=== PATIENT | male | born 1965 | race Caucasian/White ===

== ENCOUNTER 2020-03-12 14:39 | Emergency (ER) | payer SELFPAY ==
[~2020-03-12] VITALS: Ht 160 cm; Wt 50.0 kg
[2020-03-12] MEDS: LIDOCAINE HCL/PF 1% 10 MG/ML 5ML VIAL IJ ONE (19:42)
[2020-03-12] MEDS: TETANUS, DIPHTHERIA, PERTUSSIS VAC/PF 0.5ML (>7YR OLD) IM ONE (19:42)
[2020-03-12 19:59] VITALS: BP 138/89
== END 2020-03-12 20:00 | disposition home or self-care (01) ==
LOC: ER 14:39
DX: S01.01XA Laceration without foreign body of scalp, initial encounter (principal); W22.8XXA Striking against or struck by other objects, initial encounter; Y93.89 Activity, other specified; Y92.89 Other specified places as the place of occurrence of the external cause; Y99.8 Other external cause status
CPT/HCPCS: 12002; 90471; 90715; 99283; J3490